=== PATIENT | male | born 1970 | race Caucasian/White ===

== ENCOUNTER 2017-07-26 18:12 | Inpatient (IN) | payer OTHER ==
--- NOTE | ~2017-07-26 | CN ---
PATIENT NAME:ARNALDO COLLINS MEDICAL RECORD: [id number] : 72 LOCATION:. D.2133 ADMIT DATE: 07/26/17 ACCOUNT: [id number] CONSULTING PHYSICIAN: SHERRY MATA MD REFERRING PHYSICIAN: BJORN SUBRAMANIAN MD DATE OF CONSULTATION: 07/27/2017 ADDENDUM CHIEF COMPLAINT: Rectal cancer. HISTORY OF PRESENT ILLNESS: The patient has undergone an abdominoperineal resection at [facility] by Dr. Weiss. He lives in [place]. He has been followed by Dr. Ethel gomez in [place]. He underwent preoperative chemotherapy and radiation and then an abdominoperineal resection. He has a left lower quadrant colostomy, which looks very good. His perineal wound has never healed. It continues to drain. He has undergone a biopsy of some tissue in the perineum and this was positive for a malignancy. I was asked to see the patient to see if there is anything that could be done to heal up his perineum. According to the , he had a pelvic side wall recurrence as well as hepatic metastases. Palpation of the buttocks and perineum was painful. Nothing alleviates. Symptoms are of moderate intensity. This is a consultation note addendum. For the typed portion of the consult note, please see the chart. This would include the past medical and surgical history, current medications, allergies, social history as well as family history. REVIEW OF SYSTEMS: No nausea, no vomiting, no fever, no chills. Positive for perineal pain. Positive for perineal drainage. Positive for generalized weakness. PHYSICAL EXAMINATION: GENERAL: The patient appears acutely ill. Also appears chronically ill. VITAL SIGNS: Reviewed. EARS: External ears appear normal. EYES: Extraocular movements are intact. NECK: Trachea is midline. CHEST: No intercostal retractions. PULMONARY: Nonlabored, no stridor. ABDOMEN: Lower abdominal tenderness without guarding. INTEGUMENT: There is a rash with erythema and induration involving the medial aspects of both buttocks. PSYCHIATRIC: Flat affect. NEUROLOGIC: Answers questions appropriately. BACK: No thoracic kyphosis. LYMPHATICS: No lymphangitic streaking of the exposed extremities. IMPRESSION: Extensive rectal cancer with metastases and a draining perineal wound. PLAN: The patient will be evaluation under anesthesia on Saturday with possible biopsies, possible debridement. TRANSINT:[id number] Voice Confirmation ID: [id number] DOCUMENT ID: [id number] CONSULT REPORT [id number] ARNALDO COLLINS, SHERRY HIGGINBOTHAM at 1158 CC: [id number] DICTATION DATE: 07/28/171810 MANIFEST/ORDER ORGANIZER PRINT ORDERS: 07/29/17 010 DIS IN 07/31/17 [place] [id number] [place] [id number]
--- NOTE | ~2017-07-26 | OP ---
PATIENT NAME: ARNALDO COLLINS MEDICAL RECORD: [id number] :72 LOCATION:D. D.2133 ADMISSION DATE:07/26/17 SURGEON: SHERRY PEREZ MD DATE OF OPERATION: 07/28/2017 SURGEON: Sherry Perez MD ANESTHESIA: General, by Wilbur Tracy CRNA. PREOPERATIVE DIAGNOSIS: Acute renal failure with bilateral hydronephrosis from metastatic rectal cancer. POSTOPERATIVE DIAGNOSIS: PROCEDURES: Cystoscopy, bilateral ureteral stent exchange to [employer] 24 cm x 6-Kittitian metal stents. FINDINGS: Too many nodules palpable in the glans penis. Rectal cancer nodules in the prostate caused bladder outlet obstruction. No bladder invasion yet. Resistance to stent placement from the distal ureter due to extrinsic obstruction by tumor. BLOOD LOSS: None. CLINICAL HISTORY: This is a 47-year-old male who was diagnosed with rectal cancer 2 years ago. He had an AP resection at [facility]. He was found to have metastasis to the liver and also to the right gluteus mandy. He has been given chemotherapy. The ulceration on the right gluteus was debrided in [place], [place]. The pathology on this turned out to be rectal cancer. He initially lived here in [place] and therefore had his treatments here at [facility]. He has now moved to [facility], but he still continues to come back to [place] for medical treatment. He developed bilateral hydronephrosis from the metastatic rectal cancer. Dr. Garry Desir at [facility] has been treating this with placement of bilateral ureteral stents. The last stent exchange was in May of 2017. Dr. Desir uses plastic stents, which are susceptible to compression by tumor. The patient presented to the Emergency Room in [place], [place] and he was found to be in acute renal failure. The facility there wished to transfer him to another center with a higher level of care. Apparently, [facility] was contacted and they did not wish to accept the patient in transfer. The patient therefore came here instead and abdominal CT shows he has bilateral hydronephrosis, even though the stents are in position. His creatinine is over 7. His potassium was 5.5. He needs to have his ureteral stents exchanged for metal ones to relieve the bilateral ureteral obstruction. Otherwise, he is going to end up on dialysis. Therefore, we have to do this procedure today. He ate at 8:00 this morning. We had to wait at least 8 hours after his meal in order to do this procedure. He is not allergic to any medications. We gave him 1 gram Ancef on-call to the OR. DESCRIPTION OF PROCEDURE: The patient was given induction of general anesthesia. He was then placed in the dorsal lithotomy position and prepped and draped. Lidocaine jelly was inserted into the urethra. On palpating his glans penis, I can feel a nodule, which I suspect is a metastatic rectal cancer lesion. Going into the urethra, the penile urethra was normal with no strictures. All of a sudden upon entering into the prostatic urethra, I met with severe resistance. Attempts to pass the scope through only resulted in OPERATIVE REPORT [id number] ARNALDO COLLINS creation of a urethral mucosal flap. Therefore, I removed the 21-Kittitian scope and switched to a 17-Kittitian scope. Using the smaller scope, I was able to negotiate the resistance in the prostatic urethra and enter into the bladder. I could see the 2 ureteral stents present. No bladder tumor was seen, but there was a lot of tissue edema around the stents. Going back into the prostatic urethra, nodules are visible on the lateral lobes of the prostate and this probably represents metastatic rectal cancer. This presented with the great difficulty with passage of the 21-Kittitian scope. Through the scope sheath, I inserted a Sensor wire into the bladder. The scope sheath was then removed. The Sensor wire was maintained throughout the case to allow us to identify the true urethral passage. The 21-Kittitian scope was again used and I managed to finally get it into the bladder. The left ureteral stent was pulled down out of the urethral meatus. I did not wish to completely remove the stents because I wanted to put a guidewire up through the lumen of the stent. If I lost the access otherwise it will be very difficult to try to get back into the ureteral orifice with all the surrounding tissue edema. We cut off the coiled end of the stent and through the lumen of the stent, I placed the guidewire up into the renal pelvis. The entire stent was then removed, leaving the guidewire in place. The Cook Resonance stent, a ureteral access catheter, and clear plastic sheath were then introduced over the guidewire. Under radiographic guidance, we managed to place the end of the clear plastic sheath to the renal pelvis level. There is a radiopaque marker at this point to identify the position. The guide wire and the ureteral catheter were then removed, leaving the clear plastic sheath in place. We then reintroduced the cystoscope. Under direct vision, we introduced the metallic stent through the lumen of the clear plastic sheath. Once the fluoroscopy confirmed that the proximal end of the sheath had coiled in the renal pelvis, the distal end of the sheath was gradually pulled away while using the pusher to maintain the stent in position. Eventually, the sheath was completely removed and the distal end coiled in the bladder. The same procedure was repeated on the right side. At the end of the procedure, we had 2 ureteral stents in position, both of them being metallic. The 2 old stents were sent to pathology for identification only. The cystoscope was then removed. A 16-Kittitian citizen potaw[place]i tip catheter was then placed over the guidewire through the urethra. Once the catheter was entirely in the bladder as evidenced by evacuation of urine from the bladder, then, the Aranda catheter balloon was inflated with 10 cc of sterile water. The Sensor wire was then completely removed. The Aranda catheter was put to bag drainage. The patient will be undergoing debridement of the metastatic ulceration in the right buttock tomorrow by Dr. Riggs. TRANSINT:[id number] Voice Confirmation ID: [id number] DOCUMENT ID: [id number] SHERRY PEREZ MD at 1207 CC: [id number] DICTATION DATE: 07/28/171918 STROBOSCOPE OPERATOR: 07/29/17 0241 [facility] IN [facility] [address] [place] [id number]
--- NOTE | ~2017-07-26 | CN ---
PATIENT NAME:ARNALDO COLLINS MEDICAL RECORD: [id number] : 72 LOCATION:D. D.2133 ADMIT DATE: 07/26/17 ACCOUNT: [id number] CONSULTING PHYSICIAN: DAVEY COLIN MD REFERRING PHYSICIAN: BJORN YI MD DATE OF CONSULTATION: 07/27/2017 Renal Consultation REASON FOR ADMISSION: Inability to void, bilateral lower extremity edema, acute kidney injury with a creatinine of 7.4, hyperkalemia with a potassium of 6.4. HISTORY OF PRESENT ILLNESS: This is a 47-year-old male with inability to void with acute kidney injury, hypertension, hyperkalemia, and known BPH. HOME MEDICATIONS: Morphine, metoprolol, Protonix, Flomax, aspirin, Xanax, Phenergan. PAST MEDICAL HISTORY: 1. Chronic pain syndrome. 2. Hypertension. 3. GERD. 4. Benign prostatic hypertrophy. 5. Chronic nausea. SOCIAL HISTORY: Unclear whether he drank or smoked. He declined that he was doing either. No tobacco or illicit drugs. FAMILY HISTORY: Noncontributory for renal insufficiency. ALLERGIES: NKDA. PAST SURGICAL HISTORY: We will review. PHYSICAL EXAMINATION: VITAL SIGNS: Blood pressure 145/92, 109 pulse, 97.7 temperature. GENERAL: Alert and oriented times 3. HEENT: Normocephalic, atraumatic. Clear nares. Clear throat. NECK: No JVD or thyromegaly. CHEST: Tachy rate and rhythm. S1, S2. LUNGS: Decreased breath sounds at the bases. ABDOMEN: Mildly obese with positive bowel sounds. EXTREMITIES: Positive lower extremity edema. LABORATORY DATA: Potassium is down to 5.3 from 6.4, BUN 76, creatinine 7.5, glucose 192. H&H 8.7/27 with a white count of 19,200. ASSESSMENT: 1. Acute kidney injury. He is on morphine, Xanax, and bicarbonate fluids. We will submit a CPK, uric acid. His renal ultrasound is pending. He does have a history of benign prostatic hypertrophy. Apparently, he is on Flomax. 2. Hyperkalemia, renal diet. Sodium bicarbonate. 3. Chronic pain syndrome. 4. Gastroesophageal reflux disease. We will hold his Protonix. 5. Leukocytosis. We still need a urinalysis. We will likely go ahead and CONSULT REPORT [id number] ARNALDO COLLINS start Rocephin as an antibiotic. 6. Hypertension. We will follow his blood pressure. Dr. Yi has started metoprolol. PLAN: 1. Please see orders. 2. We will follow with you. TRANSINT:[id number] Voice Confirmation ID: [id number] DOCUMENT ID: [id number] DAVEY COLIN MD at 1953 CC: [id number] DICTATION DATE: 07/27/17 1022 PARK SERVICES SPECIALIST: 07/27/17 1118 ADM IN [place] [address] [place] [address]
--- NOTE | ~2017-07-26 | OP ---
PATIENT NAME: ARNALDO COLLINS MEDICAL RECORD: [id number] :72 LOCATION:D.M2 D.2133 ADMISSION DATE:07/26/17 SURGEON: SHERRY MATA MD DATE OF OPERATION: 07/30/2017 PREOPERATIVE DIAGNOSES: 1. History of metastatic rectal cancer. 2. Nonhealing wounds of the perineum. POSTOPERATIVE DIAGNOSES: 1. History of metastatic rectal cancer. 2. Nonhealing wounds of the perineum. 3. Subcutaneous nodule just to the right of the perineum. Also, a woody induration of the perineum between the scrotum and the anus. Very likely representing a malignancy. PROCEDURES: 1. Excisional biopsy and closure, a nodular lesion to the right of midline in the perineum. The dimensions of the excision were 2.2 cm x 1.9 cm. It was a simple closure. 2. Incisional biopsy of nonhealing wound of the midline in the perineum. SURGEON: Sherry Mata MD INTERIOR DESIGN ASSISTANT: None. BLOOD LOSS: Minimal. ANESTHESIA: General. COMPLICATIONS: None. The risks, possible complications, and alternatives of the procedure were explained to the patient. He elects to proceed. OPERATIVE COURSE: The patient was conveyed to the operating room electively on 07/30/2017. General anesthesia was induced by the anesthesia staff. The patient was placed in the lithotomy position. The buttocks were taped laterally. The perineum was sterilely prepped and draped. Utilizing a curette, I performed an incisional biopsy of an ulcerated area within the midline incision in an area that was nonhealing. After I curetted out enough tissue for a biopsy, I then excised the nodule with a nodular lesion to the right of midline. Through the use of double curvilinear incisions, I excised the skin and subcutaneous tissues around the nodule. I then performed a simple closure consisting of multiple interrupted horizontal mattress 2-0 Vicryls. Sterile dressings were applied. The patient was then extubated and conveyed to post-anesthesia care unit where he was in stable condition. TRANSINT:[id number] Voice Confirmation ID: [id number] DOCUMENT ID: [id number] OPERATIVE REPORT [id number] ARNALDO COLLINS SHERRY MATA MD at 1150 CC: KAMRAN TONEY and KEMAR GRASIA [id number] DICTATION DATE: 07/30/17 1634 BACKROOM ASSOCIATE: 07/30/172049 DIS IN 07/31/17 [facility] [address] [id number]
--- NOTE | ~2017-07-26 | EC ---
PATIENT:ARNALDO COLLINS DATE OF SERVICE: 07/26/17 SEX: M MEDICAL RECORD: [id number] DATE OF : 72 LOCATION:D.M2 D.213 AGE OF PATIENT: 47 ADMISSION DATE: 07/26/17 REFERRING PHYSICIAN: INTERPRETING PHYSICIAN: AMY BALDWIN MD ECHOCARDIOGRAM REPORT ECHO CHARGES 4 ECHO COMPLETE Date: 07/27 CLINICAL DIAGNOSIS: CHF ECHOCARDIOGRAPHIC MEASUREMENTS (adult normal given) AC root (d.<3.7cm) 3.8 cm LV Septum d (<1.2 cm> 1.1 cm Valve Excursion 2.3 cm LV Septum (systole) 1.4 cm Left Atria (s.<4.0cm> 5.1 cm LVPW d(<1.2cm) 1.4 cm RV (d.<2.3cm) 4.4 cm LVPW (sytole) 1.8 cm LV diastole(<5.6CM) 6.4 cm MV E-F(>70mm/sec) cm LV systole 4.6 cm LVOT Diameter 2.1 cm MV exc.(>10mm) 2.5 cm Est.ejection fraction (50-75%) % DOPPLER: LVIT cm/sec A 45.0 cm/sec E 114 cm/sec LA cm/sec RVSP 29 mmHg LVOT 115 cm/sec AOP1/2T m/s Asc. Ao 178 cm/sec RVOT 114 cm/sec RA cm/sec PA 178 cm/sec AV Gradient Peak 12.61mmHg AV Mean 7.35 mmHg AV Area 2.6 cm MV Gradient Peak 9.88 mmHg MV Mean 2.81 mmHg MV Area cm COMMENTS: Director Of Litigation: Antionette DUKES Energy Conservation Representative: 1 Dr. Baldwin TAPE# PACS Pericardial Effusion N DATE OF SERVICE: Echocardiogram FINDINGS: 1. Left ventricular chamber size is within normal limits. Left ventricular systolic function is normal. Overall ejection fraction estimated at 55%. 2. Left atrium is enlarged at 5.1 cm. Right atrium and right ventricular chamber sizes are as well mildly dilated. 3. Valvular structures have normal structure and motion. ECHOCARDIOGRAM REPORT [id number] ARNALDO COLLINS 4. Doppler interrogation reveals only mild tricuspid regurgitation, no other valvular insufficiency or stenosis and pulmonary systolic pressure is estimated at 29 mmHg. 5. No evidence of pericardial effusion or left ventricular thrombus. TRANSINT:[id number] Voice Confirmation ID: [id number] DOCUMENT ID: [id number] AMY BALDWIN MD at 0956 CC: [id number] DICTATION DATE: 07/28/17 1056 PHONOGRAPH CARTRIDGE ASSEMBLER: 07/28/17 1511 DIS IN 07/31/17 [place] [id number] [place] [id number]
--- NOTE | ~2017-07-26 | PN ---
PATIENT:ARNALDO COLLINS MEDICAL RECORD: [id number] LOCATION:D.M2 D.213 ADMISSION DATE: 07/26/17 PROGRESS NOTE DATE OF SERVICE: 07/28/2017 CHIEF COMPLAINT: Perineal pain. I did not realize it but I actually know this patient. I diagnosed his rectal malignancy some time ago. He was to follow up with me to have his rectal malignancy excised. He ended up over at [facility] and underwent his operation there. His symptoms are unchanged from yesterday. I am going to plan for debridement in the OR tomorrow if any tissue needs to be debrided. I likely will take some biopsies as well. I am going to try to obtain records from [place] as well as [facility] to get a better idea of his treatment course. There is a progress note addendum. For the typed portion of the progress note, please see the chart. This would include past medical and surgical history, current medications, allergies, social history as well as family history. REVIEW OF SYSTEMS: Currently, no nausea, no vomiting, no fever, no chills, no chest pain, no shortness of breath. Positive for perineal pain. Positive for abdominal pain. PHYSICAL EXAMINATION: GENERAL: The patient appears acutely ill. Also appears chronically ill. VITAL SIGNS: Reviewed. EARS: External ears appear normal. EYES: Extraocular movements are intact. NECK: Trachea is midline. CHEST: No intercostal retractions. PULMONARY: Nonlabored. No stridor. ABDOMEN: Tenderness in the lower abdomen without guarding. INTEGUMENT: There is a rash with induration involving medial aspects of both buttocks. BACK: No thoracic kyphosis. LYMPHATIC: No lymphangitic streaking of the exposed extremities. IMPRESSION: Open perineal wound in a patient with advanced rectal cancer with metastases. PLAN: Anal evaluation under anesthesia in the operating room with possible biopsies, possible debridement. The patient is to undergo placement of metallic ureteral stents by Dr. Harvey today. TRANSINT:[id number] Voice Confirmation ID: [id number] DOCUMENT ID: [id number] PROGRESS NOTE [id number] ARNALDO COLLINS, SHERRY HIGGINBOTHAM at 1158 CC: [id number] DICTATION DATE: 07/28/171813 PRECISION LAYOUT WORKER: 07/28/171916 DIS IN 07/31/17 [facility] [address] [place] [address]
[2017-07-26] MEDS ORDERED: MORPHINE IMMEDI15 MG PO (20:35)
[2017-07-26 21:06] VITALS: BP 151/86
[2017-07-26 21:13] LABS: BASOPHILS 0.2 % (0-2); EOSINOPHILS 4.7 % (0-7); HEMATOCRIT 26.9 % (42.0-54.0); HEMOGLOBIN 8.4 g/dL (13.5-17.5); IMMATURE GRANULOCYTES 0.5 % (0-5); LYMPHOCYTES 7.6 % (15-50); MCH 25.6 pg (26.0-34.0); MCHC 31.2 g/dL (31.0-37.0); MONOCYTES 5.1 % (2-11); NEUTROPHILS 81.9 % (40-80); PLATELET COUNT 614 10x3/uL (130-400); RBC 3.28 10x6/uL (4.20-6.10); WBC 17.8 10x3/uL (4.8-10.8)
[2017-07-26 21:50] LABS: ANION GAP 23.4 mmol/L (8-16); CALCIUM 8.5 mg/dL (8.5-10.1); CREATININE - SERUM 7.5 mg/dL (0.6-1.3)
[2017-07-26 22:06] LABS: POTASSIUM - SERUM 6.4 mmol/L (3.5-5.1)
[2017-07-27 01:14] VITALS: BP 149/84
[2017-07-27] MEDS ORDERED: LOPRESSOR25 MG PO (02:48)
[2017-07-27] MEDS ORDERED: FLOMAX0.4 MG PO (02:49)
[2017-07-27] MEDS ORDERED: PROTONIX40 MG PO (02:49)
[2017-07-27] MEDS ORDERED: ASPIRIN EC81 M1 PO (02:50)
[2017-07-27] MEDS ORDERED: MORPHINE SULFAT30 MG PO (02:57)
[2017-07-27] MEDS ORDERED: XANAX0.5 MG PO (03:00)
[2017-07-27] MEDS ORDERED: PHENERGAN25 M1 PO (03:00)
[2017-07-27] MEDS ORDERED: DOK PLUS TABL1 UDTAB PO (03:01)
[2017-07-27 05:05] VITALS: BP 142/72
[2017-07-27 05:13] LABS: BASOPHILS 0.3 % (0-2); EOSINOPHILS 5.3 % (0-7); HEMATOCRIT 27.3 % (42.0-54.0); HEMOGLOBIN 8.7 g/dL (13.5-17.5); IMMATURE GRANULOCYTES 0.5 % (0-5); MCHC 31.9 g/dL (31.0-37.0); MCV 81.5 fL (80.0-100.0); MEAN PLATELET VOLUME 9.2 fL (7.4-10.4); MONOCYTES 7.8 % (2-11); NEUTROPHILS 79.1 % (40-80); RBC 3.35 10x6/uL (4.20-6.10); RDW 21.8 % (11.5-14.5); WBC 19.2 10x3/uL (4.8-10.8)
[2017-07-27 05:18] LABS: PLATELET COUNT 799 10x3/uL (130-400)
[2017-07-27 05:25] LABS: CALCIUM 8.9 mg/dL (8.5-10.1); CREATININE - SERUM 7.1 mg/dL (0.6-1.3)
[2017-07-27 05:26] LABS: ANION GAP 18.2 mmol/L (8-16); CARBON DIOXIDE 26.1 mmol/L (21.0-32.0); POTASSIUM - SERUM 5.3 mmol/L (3.5-5.1)
[2017-07-27 08:27] VITALS: BP 145/92
[2017-07-27 11:12] VITALS: BP 151/90
[2017-07-27 11:52] VITALS: Wt 76.1 kg
[2017-07-27 12:42] LABS: CREATININE - URINE 22.9 mg/dL (30-125); PROTEIN - URINE 32.3 mg/dL (0.0-11.9)
[2017-07-27 12:47] LABS: APPEARANCE CLEAR (CLEAR); BILIRUBIN NEGATIVE (NEGATIVE); COLOR YELLOW (YELLOW); GLUCOSE NEGATIVE (NEGATIVE); KETONE NEGATIVE (NEGATIVE); NITRITE NEGATIVE (NEGATIVE); PROTEIN TRACE mg/dL (NEGATIVE); SPECIFIC GRAVITY 1.005 (1.005-1.020); UROBILINOGEN NORMAL (NORMAL)
[2017-07-27 12:50] LABS: BACTERIA FEW /hpf (NONE SEEN); EPITHELIAL CELLS 0-5 /hpf (0-5); RED CELLS - URINE 0-5 /hpf (0-5); WHITE CELLS - URINE 0-5 /hpf (0-5)
[2017-07-27 16:18] VITALS: BP 153/88
[2017-07-27 16:23] LABS: ALBUMIN 1.9 g/dL (3.4-5.0); ANION GAP 15.7 mmol/L (8-16); BILIRUBIN - TOTAL 0.31 mg/dL (0.2-1.3); CALCIUM 8.8 mg/dL (8.5-10.1); CARBON DIOXIDE 29.6 mmol/L (21.0-32.0); CREATININE - SERUM 7.3 mg/dL (0.6-1.3); MAGNESIUM - SERUM 1.6 mg/dL (1.8-2.4); POTASSIUM - SERUM 5.3 mmol/L (3.5-5.1); PROTEIN - SERUM 7.7 g/dL (6.4-8.2)
[2017-07-27 19:00] VITALS: BP 152/98
[2017-07-28 05:28] VITALS: BP 133/74
[2017-07-28 09:27] VITALS: BP 124/73
[2017-07-28 09:59] LABS: BASOPHILS 0.3 % (0-2); EOSINOPHILS 8.5 % (0-7); HEMATOCRIT 25.2 % (42.0-54.0); HEMOGLOBIN 7.9 g/dL (13.5-17.5); IMMATURE GRANULOCYTES 0.4 % (0-5); LYMPHOCYTES 9.2 % (15-50); MCH 25.8 pg (26.0-34.0); MCHC 31.3 g/dL (31.0-37.0); MCV 82.4 fL (80.0-100.0); MEAN PLATELET VOLUME 8.9 fL (7.4-10.4); MONOCYTES 7.2 % (2-11); NEUTROPHILS 74.4 % (40-80); PLATELET COUNT 734 10x3/uL (130-400); RBC 3.06 10x6/uL (4.20-6.10); RDW 21.7 % (11.5-14.5); WBC 17.6 10x3/uL (4.8-10.8)
[2017-07-28 10:26] LABS: ANION GAP 17.2 mmol/L (8-16); CALCIUM 8.5 mg/dL (8.5-10.1); CARBON DIOXIDE 27.3 mmol/L (21.0-32.0); CREATININE - SERUM 7.6 mg/dL (0.6-1.3); PHOSPHOROUS 7.5 mg/dL (2.5-4.9); POTASSIUM - SERUM 5.5 mmol/L (3.5-5.1)
[2017-07-28 12:09] VITALS: BP 132/66
[2017-07-28 15:05] VITALS: BP 138/87
[2017-07-28 20:00] VITALS: BP 143/92
[2017-07-29] VITALS (8 sets, daily range): BP systolic 116–156; BP diastolic 72–80
[2017-07-29 05:19] LABS: BASOPHILS 0.3 % (0-2); EOSINOPHILS 10.7 % (0-7); HEMATOCRIT 24.3 % (42.0-54.0); IMMATURE GRANULOCYTES 0.3 % (0-5); LYMPHOCYTES 8.5 % (15-50); MCH 25.6 pg (26.0-34.0); MCHC 30.9 g/dL (31.0-37.0); MCV 82.9 fL (80.0-100.0); MONOCYTES 6.8 % (2-11); NEUTROPHILS 73.4 % (40-80); PLATELET COUNT 706 10x3/uL (130-400); RBC 2.93 10x6/uL (4.20-6.10); RDW 21.5 % (11.5-14.5); WBC 14.8 10x3/uL (4.8-10.8)
[2017-07-29 05:33] LABS: HEMOGLOBIN 7.5 g/dL (13.5-17.5)
[2017-07-29 05:46] LABS: ANION GAP 14.3 mmol/L (8-16); CALCIUM 8.3 mg/dL (8.5-10.1); CARBON DIOXIDE 31.7 mmol/L (21.0-32.0); CREATININE - SERUM 6.7 mg/dL (0.6-1.3); PHOSPHOROUS 7.7 mg/dL (2.5-4.9)
[2017-07-30] VITALS (7 sets, daily range): BP systolic 118–146; BP diastolic 60–87
[2017-07-30 06:11] LABS: BASOPHILS 0.6 % (0-2); EOSINOPHILS 15.5 % (0-7); HEMATOCRIT 25.1 % (42.0-54.0); HEMOGLOBIN 7.7 g/dL (13.5-17.5); IMMATURE GRANULOCYTES 0.5 % (0-5); LYMPHOCYTES 9.8 % (15-50); MCH 26.2 pg (26.0-34.0); MCHC 30.7 g/dL (31.0-37.0); MEAN PLATELET VOLUME 9.1 fL (7.4-10.4); MONOCYTES 10.2 % (2-11); NEUTROPHILS 63.4 % (40-80); PLATELET COUNT 688 10x3/uL (130-400); RBC 2.94 10x6/uL (4.20-6.10); RDW 20.6 % (11.5-14.5); WBC 12.8 10x3/uL (4.8-10.8)
[2017-07-30 06:21] LABS: ANION GAP 7.7 mmol/L (8-16); CARBON DIOXIDE 32.7 mmol/L (21.0-32.0); PHOSPHOROUS 6.2 mg/dL (2.5-4.9); POTASSIUM - SERUM 4.4 mmol/L (3.5-5.1)
[2017-07-30 06:22] LABS: MCV 85.4 fL (80.0-100.0)
[2017-07-30 11:04] LABS: BASOPHILS 0.6 % (0-2); EOSINOPHILS 12.3 % (0-7); IMMATURE GRANULOCYTES 0.4 % (0-5); LYMPHOCYTES 7.8 % (15-50); MCH 27.4 pg (26.0-34.0); MCHC 31.1 g/dL (31.0-37.0); MEAN PLATELET VOLUME 9.2 fL (7.4-10.4); MONOCYTES 6.7 % (2-11); NEUTROPHILS 72.2 % (40-80); PLATELET COUNT 705 10x3/uL (130-400); RDW 20.2 % (11.5-14.5)
[2017-07-30 11:05] LABS: HEMATOCRIT 35.4 % (42.0-54.0); MCV 88.1 fL (80.0-100.0); RBC 4.02 10x6/uL (4.20-6.10); WBC 16.1 10x3/uL (4.8-10.8)
[2017-07-31] VITALS: BP 142/94
[2017-07-31 05:57] LABS: BASOPHILS 0.4 % (0-2); EOSINOPHILS 1.7 % (0-7); HEMATOCRIT 29.9 % (42.0-54.0); HEMOGLOBIN 9.3 g/dL (13.5-17.5); IMMATURE GRANULOCYTES 0.4 % (0-5); LYMPHOCYTES 8.7 % (15-50); MCH 26.9 pg (26.0-34.0); MCHC 31.1 g/dL (31.0-37.0); MCV 86.4 fL (80.0-100.0); MEAN PLATELET VOLUME 9.2 fL (7.4-10.4); MONOCYTES 7.2 % (2-11); NEUTROPHILS 81.6 % (40-80); PLATELET COUNT 747 10x3/uL (130-400); RBC 3.46 10x6/uL (4.20-6.10); RDW 19.6 % (11.5-14.5); WBC 14.8 10x3/uL (4.8-10.8)
[2017-07-31 06:20] LABS: ANION GAP 14.6 mmol/L (8-16); CARBON DIOXIDE 28.7 mmol/L (21.0-32.0); CREATININE - SERUM 3.9 mg/dL (0.6-1.3); POTASSIUM - SERUM 4.3 mmol/L (3.5-5.1)
[2017-07-31 06:29] VITALS: BP 138/88
[2017-07-31 08:35] VITALS: BP 129/79
[2017-07-31 13:01] VITALS: BP 139/91
== END 2017-07-31 16:27 | disposition home health service (06) | DRG 729 ==
LOC: D.M2 18:12
PROVIDERS: Internal Medicine Nephrology; Surgery; Urology
PROC: 0T788DZ Dilation of Bilateral Ureters with Intraluminal Device, Via Natural or Artificial Opening Endoscopic (ICD-10-PCS; 2017-07-28)
PROC: 0TP98DZ Removal of Intraluminal Device from Ureter, Via Natural or Artificial Opening Endoscopic (ICD-10-PCS; 2017-07-28 13:30)
PROC: 0JBB0ZX Excision of Perineum Subcutaneous Tissue and Fascia, Open Approach, Diagnostic (ICD-10-PCS; principal; 2017-07-30 10:00)
DX: S31.501A Unspecified open wound of unspecified external genital organs, male, initial encounter (principal); N17.9 Acute kidney failure, unspecified; C79.82 Secondary malignant neoplasm of genital organs; C20 Malignant neoplasm of rectum; N13.8 Other obstructive and reflux uropathy; F17.203 Nicotine dependence unspecified, with withdrawal; N13.1 Hydronephrosis with ureteral stricture, not elsewhere classified; R33.8 Other retention of urine; I12.9 Hypertensive chronic kidney disease with stage 1 through stage 4 chronic kidney disease, or unspecified chronic kidney disease; N18.3 Chronic kidney disease, stage 3 (moderate); K21.9 Gastro-esophageal reflux disease without esophagitis; N40.1 Benign prostatic hyperplasia with lower urinary tract symptoms; G89.4 Chronic pain syndrome; E87.5 Hyperkalemia; X58.XXXA Exposure to other specified factors, initial encounter; C44.500 Unspecified malignant neoplasm of anal skin